=== PATIENT | female | born 1955 | race Caucasian/White ===

== ENCOUNTER 2017-01-15 17:21 | Emergency (ER) | payer OTHER ==
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
[~2017-01-15 17:21] MED LIST: ACETAMINOPHEN; BACTROBAN15 GM TOP; LORTAB 5/500 TA1 TA1 PO; NO MEDICATIONS; NORVASC; NORVASC10 MG PO; PHENERGAN25 M1 DOB; PHENERGAN25 MG PO
== END 2017-01-15 18:59 | disposition home or self-care (01) ==
LOC: SED 17:21
DX: S80.12XA Contusion of left lower leg, initial encounter (principal); K21.9 Gastro-esophageal reflux disease without esophagitis; I10 Essential (primary) hypertension; Z23 Encounter for immunization; W22.8XXA Striking against or struck by other objects, initial encounter; Y92.009 Unspecified place in unspecified non-institutional (private) residence as the place of occurrence of the external cause
CPT/HCPCS: 29540; 73590; 90471; 90715; 99283